=== PATIENT | male | born 1975 ===

== ENCOUNTER 2017-02-15 11:08 | Emergency (ER) | payer OTHER ==
[2017-02-15 11:16] VITALS: BMI 35.9
[2017-02-15] MEDS ORDERED: Epinephrine /Lidocaine HCL 1:100,000/2% 30 ml INJ ONE (11:45)
[2017-02-15 11:49] VITALS: O2SAT 96
[2017-02-15] MEDS ORDERED: Lidocaine 2% w Epi 1:200,000 Pf Inj IJ ONE (12:00)
--- NOTE | 2017-02-15 12:26 | RAD ---
HISTORY: chest injury, R chest pain COMPARISON: No prior. TECHNIQUE: Chest PA and lateral FINDINGS: LUNGS: No active pulmonary disease. PLEURA: No significant pleural effusion identified. No pneumothorax apparent. CARDIOVASCULAR: Normal. OSSEOUS STRUCTURES: No significant abnormalities. VISUALIZED UPPER ABDOMEN: Normal. OTHER FINDINGS: None. IMPRESSION: No acute cardiopulmonary disease appreciated.
--- NOTE | 2017-02-15 12:30 | RAD ---
PROCEDURE: Right Hand Radiographs. HISTORY: hand injury, lac to palm, r/o FB COMPARISON: None. FINDINGS: BONES: No fracture or destructive lesion is appreciated throughout the right hand. JOINTS: Normal. No osteoarthritic changes. SOFT TISSUES: Small radiodensities seen related to the ulnar side of the distal phalanx right index finger soft tissues potentially reflecting retained radiodense foreign bodies or dermal artifact. Clinically correlate further. However, soft tissues of the right hands palm appear grossly nonfocal as imaged. Dermal hyperdensity seen related to the mid thumb skin. Trace emphysematous changes are questioned related to the thenar eminence. OTHER FINDINGS: None. IMPRESSION: 1. No acute fracture, dislocation or destructive bony process. 2. No retained radiodense foreign body is seen related to the palm soft tissues. Trace emphysematous changes are questioned related to the thenar eminence. 3. Dermal calcifications seen related to the left thumb skin. Additional radiodensities are seen related to the ulnar side of the distal right index finger soft tissues and possible dermis. Clinically correlate further.
--- NOTE | 2017-02-15 12:36 | RAD ---
PROCEDURE: Radiographs of the left elbow. HISTORY: elbow injury COMPARISON: No prior. FINDINGS: BONES: Linear density seen in the AP view of the left radius suspicious for nondisplaced radial head fracture. No additional fractures suspected. CT may be useful for greater characterization of the elbow. No dislocation or subluxation. JOINTS: Normal. No osteoarthritis. SOFT TISSUES: Effusion related displacement of the anterior fat pad is appreciated and possibly minimally the posterior fat pad as well, further buttressing the likelihood of fracture including the left radial head. JOINT EFFUSION: As above. OTHER FINDINGS: None IMPRESSION: Findings suggestive of a nondisplaced fracture of radial head left elbow without dislocation. Please see discussion above. CT may be useful for further characterization of the left elbow. Findings discussed with FUAD Lovell, 02/15/2017 12:30 p.m..
--- NOTE | 2017-02-15 12:45 | C.PDOC ---
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 Patient states he was working on a ladder when he slipped and fell 3 feet. Patient now reports of pain to the right rib are and left elbow. Patient also sustained a laceration to the right hand, palm. Patient denies LOC, neck pain, back pain, weakness or numbness. Time Seen by Provider: 02/15/17 11:26 Chief Complaint (Nursing): Abnormal Skin Integrity History Per: Patient History/Exam Limitations: no limitations Onset/Duration Of Symptoms: Sudden Onset (AC/DC REWINDER) Current Symptoms Are (Timing): Still Present Past Medical History Reviewed: Historical Data, Nursing Documentation, Vital Signs Vital Signs: Last Vital Signs Temp 98.1 F 02/15/17 16:24 Pulse 75 02/15/17 16:24 Resp 17 02/15/17 16:24 BP 132/75 02/15/17 16:24 Pulse Ox 96 02/15/17 16:24 Family History: States: No Known Family Hx - Social History Hx Alcohol Use: Yes Hx Substance Use: No - Immunization History Hx Tetanus Toxoid Vaccination: No Hx Influenza Vaccination: No Hx Pneumococcal Vaccination: No Review Of Systems Except As Marked, All Systems Reviewed And Found Negative. Musculoskeletal: Positive for: Other ((+) Pain to the right rib area and left elbow.). Negative for: Neck Pain, Back Pain Skin: Positive for: Other ((+) Laceration to the right palm.) Neurological: Negative for: Weakness, Numbness Physical Exam - Physical Exam Appears: Non-toxic, No Acute Distress Skin: Warm, Dry, No Rash Head: Atraumatic, Normacephalic Eye(s): bilateral: Normal Inspection, PERRL, EOMI Ear(s): Bilateral: Normal Oral Mucosa: Moist Throat: No Erythema, No Exudate Neck: Normal, Normal ROM, Supple Chest: Symmetrical, Other ((+) Tenderness to the right lateral ribs.) Cardiovascular: Rhythm Regular, No Friction Rub, No Murmur Respiratory: Normal Breath Sounds, No Rales, No Rhonchi, No Stridor, No Wheezing Gastrointestinal/Abdominal: Bowel Sounds (active), Soft, No Tenderness Back: Normal Inspection, No CVA Tenderness Extremity: Normal ROM (Of the right hand. No numbness.), Capillary Refill (<2 secs), No Swelling, Other ((+) 3.5 linear laceration to the thenar eminence.) Pulses: Left Radial: Normal, Right Radial: Normal Neurological/Psych: Oriented x3, Normal Speech, Normal Motor, Normal Sensation Gait: Steady ED Course And Treatment O2 Sat by Pulse Oximetry: 96 (RA) Pulse Ox Interpretation: Normal - Radiology CXR: Viewed By Me, Read By Radiologist CXR Interpretation: Yes: No Acute Disease - Other Rad X-Ray - Right Hand X-Ray: Viewed By Me, Read By Radiologist Interpretation: PROCEDURE: Right Hand Radiographs. HISTORY: hand injury, lac to palm, r/o FB. COMPARISON: None. FINDINGS: BONES: No fracture or destructive lesion is appreciated throughout the right hand. JOINTS: Normal. No osteoarthritic changes. SOFT TISSUES: Small radiodensities seen related to the ulnar side of the distal phalanx right index finger soft tissues potentially reflecting retained radiodense foreign bodies or dermal artifact. Clinically correlate further. However, soft tissues of the right hands palm appear grossly nonfocal as imaged. Dermal hyperdensity seen related to the mid thumb skin. Trace emphysematous changes are questioned related to the thenar eminence. OTHER FINDINGS: None. IMPRESSION: 1. No acute fracture, dislocation or destructive bony process. 2. No retained radiodense foreign body is seen related to the palm soft tissues. Trace emphysematous changes are questioned related to the thenar eminence. 3. Dermal calcifications seen related to the left thumb skin. Additional radiodensities are seen related to the ulnar side of the distal right index finger soft tissues and possible dermis. Clinically correlate further. X-Ray - Left Elbow X-Ray: Viewed By Me, Read By Radiologist Interpretation: PROCEDURE: Radiographs of the left elbow. HISTORY: elbow injury. COMPARISON: No prior. FINDINGS: BONES: Linear density seen in the AP view of the left radius suspicious for nondisplaced radial head fracture. No additional fractures suspected. CT may be useful for greater characterization of the elbow. No dislocation or subluxation. JOINTS: Normal. No osteoarthritis. SOFT TISSUES: Effusion related displacement of the anterior fat pad is appreciated and possibly minimally the posterior fat pad as well, further buttressing the likelihood of fracture including the left radial head. JOINT EFFUSION: As above. OTHER FINDINGS: None. IMPRESSION: Findings suggestive of a nondisplaced fracture of radial head left elbow without dislocation. Please see discussion above. CT may be useful for further characterization of the left elbow. Findings discussed with FUAD Lovell, 2016 12:30 p.m.. - CT Scan/US CT - Upper Extremity Other Rad Studies (CT/US): Read By Radiologist, Radiology Report Reviewed CT/US Interpretation: CT left elbow. History: Elbow fracture. Comparison: 12/2016. Technique: Multiple contiguous axial images were performed through the left elbow without the use of intravenous contrast. This CT exam was performed using one or more of the following dose reduction techniques: Automated exposure control, adjustment of the mA and/or kV according to patient size, and/or use of iterative reconstruction technique. Findings: Transverse oblique intra-articular fracture deformity of the radial head extending to the radial-capitellar joint space and inferiorly to the ulnar sided cortex at the base of the radial head as well as to the anterior cortex. Large elbow joint effusion. Mild bony spurring noted at the level of the posterior olecranon near the triceps tendon insertion. No evidence of elbow joint dislocation. Impression: 1. Transverse oblique intra-articular fracture deformity of the radial head extending to the radial-capitellar joint space and inferiorly to the ulnar sided cortex at the base of the radial head as well as to the anterior cortex. 2. Large elbow joint effusion. 3. Mild bony spurring noted at the level of the posterior olecranon near the triceps tendon insertion. Correlation with MRI may be helpful if clinically indicated. Medical Decision Making Medical Decision Making: PLAN: * CT - Upper Extremity * X-Ray - Left Elbow, Right Hand * CXR * Tetanus IM Disposition - Disposition Referrals: [facility] at [facility] [Outside] [employer] [facility] [facility] [Outside] Frank Scherer MD [Staff Provider] - Disposition: HOME/ ROUTINE Disposition Time: 16:15 Condition: GOOD Additional Instructions: limpie la herida comenzando el viernes, dos veces al da con agua y jabn y luego aplique la crema. Shauna los antibiticos por completo. Suturas que deben eliminarse en 14 carroll Prescriptions: Acetaminophen [Tylenol] 325 mg PO Q6 PRN #30 tab PRN Reason: Pain, Mild (1-3) Bacitracin Ointment [Bacitracin] 30 gm TOP BID #2 tube Cephalexin [cephalexin] 500 mg PO BID #14 cap Instructions: Laceration (ED), Elbow Fracture in Adults (ED), Rib Contusion (ED ) Forms: [employer] (Armenian) Print Language: [place]ICAN CITIZEN - Clinical Impression Clinical Impression: Elbow fracture, Laceration, Rib contusion - PA / PUMP SERVICER HELPER / Resident Statement MD/DO has reviewed & agrees with the documentation as recorded. - Scribe Statement The provider has reviewed the documentation as recorded by the Scribe Carrie Contreras All medical record entries made by the Xavieribfeli were at my direction and personally dictated by me. I have reviewed the chart and agree that the record accurately reflects my personal performance of the history, physical exam, medical decision making, and the department course for this patient. I have also personally directed, reviewed, and agree with the discharge instructions and disposition.
[2017-02-15] MEDS ORDERED: Bacitracin 500 Units/gm Oint Foilpak UD TOP ONE (13:11)
[2017-02-15] MEDS ORDERED: Bacitracin 500 Units/gm Oint Foilpak UD ONE (13:15)
--- NOTE | 2017-02-15 15:54 | CT ---
CT left elbow History: Elbow fracture. Comparison: 02/15/2017 Technique: Multiple contiguous axial images were performed through the left elbow without the use of intravenous contrast. This CT exam was performed using one or more of the following dose reduction techniques: Automated exposure control, adjustment of the mA and/or kV according to patient size, and/or use of iterative reconstruction technique. Findings: Transverse oblique intra-articular fracture deformity of the radial head extending to the radial-capitellar joint space and inferiorly to the ulnar sided cortex at the base of the radial head as well as to the anterior cortex. Large elbow joint effusion. Mild bony spurring noted at the level of the posterior olecranon near the triceps tendon insertion. No evidence of elbow joint dislocation. Impression: 1. Transverse oblique intra-articular fracture deformity of the radial head extending to the radial-capitellar joint space and inferiorly to the ulnar sided cortex at the base of the radial head as well as to the anterior cortex. 2. Large elbow joint effusion. 3. Mild bony spurring noted at the level of the posterior olecranon near the triceps tendon insertion. Correlation with MRI may be helpful if clinically indicated.
[2017-02-15 16:25] VITALS: BP 132/75; PULSE 75; RESP 17; TEMP 98.1
== END 2017-02-15 16:32 | disposition home or self-care (01) ==
LOC: SUPCPDRO 11:08 → C.ER 11:08
DX: S61.411A Laceration without foreign body of right hand, initial encounter (principal); S52.122A Displaced fracture of head of left radius, initial encounter for closed fracture; S20.211A Contusion of right front wall of thorax, initial encounter; W11.XXXA Fall on and from ladder, initial encounter; Y92.89 Other specified places as the place of occurrence of the external cause; Y99.0 Civilian activity done for income or pay